=== PATIENT | female | born 1975 | race Caucasian/White ===

== ENCOUNTER 2017-12-07 12:57 | Emergency (ER) | payer BC ==
[~2017-12-07] VITALS: Ht 167.6 cm; Wt 60.0 kg
[~2017-12-07 12:57] MED LIST: ALPR.25 PO
[2017-12-07 13:09] VITALS: BP 152/89; PULSE 106; RESP 16; TEMP 98.6; O2SAT 100
[2017-12-07 14:00] VITALS: BP 134/84; PULSE 90; RESP 16; O2SAT 100
--- NOTE | 2017-12-07 14:50 | PD ---
HPI Chief Complaint: Dizziness Time Seen by Provider: 14:47 Travel History International Travel<30 days: Yes Contact w/Intl Traveler<30days: Yes Name of Country Traveled to: [facility] Traveled to known affect area: No History of Present Illness HPI Patient comes in complaining of dizziness for about a week and over the last 2 days the patient has developed this constant,nonradiating left sided sharp chest pain with deep breath . This chest pain is sharp nonradiating 3 out of 10. No alleviating or aggravating factors. Patient specifically denies having any associated factors such as fever, cough, rash, nausea, vomiting, diarrhea, sore throat, runny nose, back pain, abdominal pain, vaginal bleeding, vaginal discharge. No nondrug allergies Past medical history significant for , occasional alcohol caffeine use PFSH Past Medical History Autoimmune Disease: No Blood Disorders: No Anxiety: No Cancer: No Cardiovascular Problems: No Diabetes: No Diminished Hearing: No Endocrine: No Genitourinary: No Immune Disorder: No Musculoskeletal: No Neurologic: No Psychiatric: No Reproductive: No Respiratory: No Immunizations Current: No Thyroid Disease: No ?: Not LMP: 10/23/18 : 4 Para: 1 Miscarriage: 3 Past Surgical History Section: Yes Gynecologic Surgery: Yes (c section) Joint Replacement: No Other Surgery: Yes (REMOVE CYST ON RIGHT LEG) Social History Alcohol Use: Yes (OCCASIONAL) Tobacco Use: No Substance Use: No Allergies-Medications (Allergen,Severity, Reaction): Coded Allergies: No Known Allergies (Verified Adverse Reaction, Unknown, 12/07/17) Reported Meds & Prescriptions Reported Meds & Active Scripts Active Naproxen EC (Naproxen) 375 Mg Tabdr 375 Mg PO BID Robaxin (Methocarbamol) 500 Mg Tab 1,000 Mg PO TID Reported Xanax (Alprazolam) 0.25 Mg Tab 0.25 Mg PO Q6H PRN Review of Systems General / Constitutional: No: Fever Eyes: No: Visual changes HENT: Positive: Lightheadedness Cardiovascular: Positive: Chest Pain or Discomfort Respiratory: No: Shortness of Breath Gastrointestinal: No: Abdominal Pain Genitourinary: No: Dysuria Musculoskeletal: No: Pain Skin: No Rash Neurologic: No: Weakness Psychiatric: No: Depression Endocrine: No: Polydipsia Hematologic/Lymphatic: No: Easy Bruising Physical Exam Narrative GENERAL: SKIN: Warm and dry. HEAD: Atraumatic. Normocephalic. EYES: Pupils equal and round. No scleral icterus. No injection or drainage. ENT: No nasal bleeding or discharge. Mucous membranes pink and moist. NECK: Trachea midline. No JVD. CARDIOVASCULAR: Regular rate and rhythm. RESPIRATORY: No accessory muscle use. Clear to auscultation. Breath sounds equal bilaterally. GASTROINTESTINAL: Abdomen soft, non-tender, nondistended. MUSCULOSKELETAL: Extremities without clubbing, cyanosis, or edema. No obvious deformities. NEUROLOGICAL: Awake and alert. No obvious cranial nerve deficits. Motor grossly within normal limits. Five out of 5 muscle strength in the arms and legs. Normal speech. PSYCHIATRIC: Appropriate mood and affect; insight and judgment normal. Data Data Last Documented VS Vital Signs Date Time Temp Pulse Resp B/P (MAP) Pulse Ox O2 Delivery O2 Flow Rate FiO2 12/07/17 17:37 77 16 119/72 (88) 100 12/07/17 17:00 Room Air 12/07/17 13:09 98.6 Orders Orders Electrocardiogram (12/07/17 14:50) B-Type Natriuretic Peptide (12/07/17 14:50) Ckmb (Isoenzyme) Profile (12/07/17 14:50) Complete Blood Count With Diff (12/07/17 14:50) Comprehensive Metabolic Panel (12/07/17 14:50) Prothrombin Time / Inr (Pt) (12/07/17 14:50) Act Partial Throm Time (Ptt) (12/07/17 14:50) Troponin I (12/07/17 14:50) Lipase (12/07/17 14:50) Ecg Monitoring (12/07/17 14:50) Iv Access Insert/Monitor (12/07/17 14:50) Oximetry (12/07/17 14:50) Ct Pulmonary Angiogram (12/07/17 14:50) Urinalysis - C+S If Indicated (12/07/17 14:52) Ed Urine Pregnancytest Poc (12/07/17 14:52) Drug Screen, Random Urine (12/07/17 14:52) Salicylates (Aspirin) (12/07/17 14:52) Tylenol (Acetaminophen) (12/07/17 14:50) Alcohol (Ethanol) (12/07/17 14:50) Iohexol 350 Inj (Omnipaque 350 Inj) (12/07/17 16:17) Ed Discharge Order (12/07/17 16:39) Labs Laboratory Tests Test 12/07/17 15:10 12/07/17 15:25 White Blood Count 5.9 TH/MM3 Red Blood Count 4.51 MIL/MM3 Hemoglobin 13.9 GM/DL Hematocrit 41.4 % Mean Corpuscular Volume 91.7 FL Mean Corpuscular Hemoglobin 30.8 PG Mean Corpuscular Hemoglobin Concent 33.5 % Red Cell Distribution Width 12.3 % Platelet Count 192 TH/MM3 Mean Platelet Volume 9.3 FL Neutrophils (%) (Auto) 83.8 % Lymphocytes (%) (Auto) 11.8 % Monocytes (%) (Auto) 3.7 % Eosinophils (%) (Auto) 0.5 % Basophils (%) (Auto) 0.2 % Neutrophils # (Auto) 5.0 TH/MM3 Lymphocytes # (Auto) 0.7 TH/MM3 Monocytes # (Auto) 0.2 TH/MM3 Eosinophils # (Auto) 0.0 TH/MM3 Basophils # (Auto) 0.0 TH/MM3 CBC Comment DIFF FINAL Differential Comment Prothrombin Time 10.7 SEC Prothromb Time International Ratio 1.1 RATIO Activated Partial Thromboplast Time 24.7 SEC Blood Urea Nitrogen 11 MG/DL Creatinine 0.70 MG/DL Random Glucose 90 MG/DL Total Protein 7.8 GM/DL Albumin 4.2 GM/DL Calcium Level 8.5 MG/DL Alkaline Phosphatase 56 U/L Aspartate Amino Transf (AST/SGOT) 10 U/L Alanine Aminotransferase (ALT/SGPT) 20 U/L Total Bilirubin 0.6 MG/DL Sodium Level 138 MEQ/L Potassium Level 3.4 MEQ/L Chloride Level 106 MEQ/L Carbon Dioxide Level 23.2 MEQ/L Anion Gap 9 MEQ/L Estimat Glomerular Filtration Rate 91 ML/MIN Total Creatine Kinase 38 U/L Troponin I LESS THAN 0.02 NG/ML B-Type Natriuretic Peptide 16 PG/ML Lipase 184 U/L Salicylates Level LESS THAN 1.7 MG/DL Acetaminophen Level LESS THAN 2.0 MCG/ML Ethyl Alcohol Level LESS THAN 3 MG/DL Urine Color YELLOW Urine Turbidity CLEAR Urine pH 6.0 Urine Specific [place]aine 1.010 Urine Protein NEG mg/dL Urine Glucose (UA) NEG mg/dL Urine Ketones 15 mg/dL Urine Occult Blood SMALL Urine Nitrite NEG Urine Bilirubin NEG Urine Urobilinogen 0.2 MG/DL Urine Leukocyte Esterase NEG Urine WBC 0-2 /hpf Microscopic Urinalysis Comment CULT NOT INDICATED Urine Opiates Screen NEG Urine Barbiturates Screen NEG Urine Amphetamines Screen NEG Urine Benzodiazepines Screen NEG Urine Cocaine Screen NEG Urine Cannabinoids Screen NEG MDM Medical Decision Making Medical Screen Exam Complete: Yes Emergency Medical Condition: Yes Medical Record Reviewed: Yes Interpretation(s) EKG shows normal sinus rhythm, sinus tachycardia of 100 bpm, left atrial enlargement noted, no evidence of any ST elevation AK pattern noted. Differential Diagnosis Pneumonia versus pleurisy versus pulmonary embolism versus pericardial effusion versus STEMI Narrative Course CBC shows no evidence of any leukocytosis no anemia, normal platelet count without left shift Coagulation profile is within normal limits UA is not consistent with a UTI Tox screen is all negative Electrolytes are all within normal limits, normal kidney liver and pancreatic functions First set of cardiac enzymes are negative and beta natruretic peptide is normal. CT chest read by radiologist as no evidence of pulmonary embolism, no acute pulmonary infiltrates or pericardial effusion. Diagnosis Primary Impression: Chest pain, atypical Patient Instructions: General Instructions Scripts Naproxen DR (Naproxen EC) 375 Mg Tabdr 375 MG PO BID, #20 TAB 0 Refills Prov: Aric Quiroz MD 12/07/17 Methocarbamol (Robaxin) 500 Mg Tab 1000 MG PO TID for Muscle Spasm, #30 TAB 0 Refills Prov: Aric Quiroz MD 12/07/17 Disposition: 01 DISCHARGE HOME Condition: Stable Aric Quiroz MD Dec 07, 2017 14:50
[2017-12-07 15:00] VITALS: RESP 16; O2SAT 100
[2017-12-07 15:15] VITALS: BP 118/76; PULSE 82; RESP 16; O2SAT 100
[2017-12-07 15:22] LABS: BASOPHIL % 0.2 % (0.0-2.0); EOSINOPHIL % 0.5 % (0.0-4.0); HEMATOCRIT 41.4 % (35.0-46.0); HEMOGLOBIN 13.9 GM/DL (11.6-15.3); LYMPH % 11.8 % (9.0-44.0); LYMPHOCYTE # 0.7 TH/MM3 (1.0-4.8); MEAN CELL VOLUME 91.7 FL (80.0-100.0); MEAN CORPUSCULAR HEMOGLOBIN 30.8 PG (27.0-34.0); MEAN CORPUSCULAR HGB CONC 33.5 % (32.0-36.0); MEAN PLATELET VOLUME 9.3 FL (7.0-11.0); MONO % 3.7 % (0.0-8.0); MONOCYTE # 0.2 TH/MM3 (0-0.9); NEUT % 83.8 % (16.0-70.0); PLATELET COUNT 192 TH/MM3 (150-450); RED BLOOD COUNT 4.51 MIL/MM3 (4.00-5.30); RED CELL DISTRIBUTION WIDTH 12.3 % (11.6-17.2); WHITE BLOOD COUNT 5.9 TH/MM3 (4.0-11.0)
[2017-12-07 15:32] LABS: CHLORIDE 106 MEQ/L (98-107); SODIUM (NA) 138 MEQ/L (136-145)
[2017-12-07 15:36] LABS: CALCIUM 8.5 MG/DL (8.5-10.1); INTERNATIONAL NORMALIZED RATIO 1.1 RATIO; PROTHROMBIN TIME - PATIENT 10.7 SEC (9.8-11.6)
[2017-12-07 15:37] LABS: ALBUMIN 4.2 GM/DL (3.4-5.0); BICARBONATE 23.2 MEQ/L (21.0-32.0); BLOOD UREA NITROGEN 11 MG/DL (7-18); GLUCOSE,RANDOM 90 MG/DL (74-106)
[2017-12-07 15:37] LABS: BILIRUBIN, URINE NEG (NEG); BLOOD, URINE SMALL (NEG); GLUCOSE,URINE NEG (NEG); KETONE, URINE 15 mg/dL (NEG); NITRITE,URINE NEG (NEG); URINE COLOR YELLOW (YELLW/STRAW); URINE LEUKOCYTE ESTERASE NEG (NEG)
[2017-12-07 15:39] LABS: ALT (GPT) 20 U/L (10-53); AST (GOT) 10 U/L (15-37)
[2017-12-07 15:40] LABS: GLOMERULAR FILTRATION RATE 91 ML/MIN (>89)
[2017-12-07 15:41] LABS: TOTAL BILIRUBIN ADULT 0.6 MG/DL (0.2-1.0); TOTAL PROTEIN 7.8 GM/DL (6.4-8.2)
[2017-12-07 15:42] LABS: ALKALINE PHOSPHATASE 56 U/L (45-117)
[2017-12-07 15:45] LABS: TROPONIN I LESS THAN 0.02 NG/ML (0.02-0.05)
[2017-12-07] MEDS ORDERED: ALPR.25 PO (15:48)
[2017-12-07 15:50] LABS: WBC, URINE 0-2 /hpf (0-5)
[2017-12-07 15:53] LABS: ACETAMINOPHEN LESS THAN 2.0 MCG/ML (10.0-30.0)
[2017-12-07] MEDS ORDERED: IOHEXOL 350 MG/ML 10 ML VIAL (for RAD DIAG) IVCONTRAST ONE (16:17)
--- NOTE | 2017-12-07 16:25 | RADRPT ---
EXAM DATE: 12/07/2017 4:18 PM EDT AGE/SEX: 42 years / Female INDICATIONS: Breathing difficulty and dizziness. CLINICAL DATA: This is the patient's initial encounter. Patient reports that signs and symptoms have been present for 1 day and indicates a pain score of 0/10. MEDICAL/SURGICAL HISTORY: None. section. RADIATION DOSE: 6.08 CTDI (mGy) COMPARISON: No prior exams available for comparison. TECHNIQUE: Volumetric scanning was performed using a multi-row detector CT scanner during bolus infu matteo of 65 ml Omnipaque 350 (iohexol) nonionic water-soluble contrast as a single exam dose. The michael a was post processed with a variety of visualization algorithms including full volume maximum intensi ty projection and sliding thin slab reformation. Using automated exposure control and adjustment of t he mA and/or kV according to patient size, radiation dose was kept as low as reasonably achievable to obtain optimal diagnostic quality images. DICOM format image data is available electronically for r eview and comparison. FINDINGS: Pulmonary Arteries: No filling defects are seen in the pulmonary arteries out to the subsegmental ve ssels. The left and right pulmonary arteries are normal in diameter. Lung: No infiltrates seen. Effusion: None. Mediastinum: No evidence of mediastinal or hilar adenopathy. Other: The axilla is unremarkable. CONCLUSION: 1. No evidence of pulmonary embolism. 2. No focal or acute pulmonary infiltrates. Electronically signed by: Jadiel Escobar MD 12/07/2017 4:24 PM EDT
[2017-12-07] MEDS ORDERED: NAPR375T4 PO (17:02)
[2017-12-07] MEDS ORDERED: ROBA500T PO (17:02)
[2017-12-07 17:37] VITALS: BP 119/72
--- NOTE | 2017-12-08 07:36 | EKG ---
Date Performed: 12/07/2017 Time Performed: 15:01:59 PTAGE: 42 years EKG: SINUS TACHYCARDIA POSSIBLE LEFT ATRIAL ENLARGEMENT ABNORMAL RHYTHM ECG PREVIOUS TRACING : 08/26/2014 17.49 DOCTOR: Humberto An Interpretating Date/Time 12/08/2017 07:32:48
== END 2017-12-07 17:41 | disposition home or self-care (01) ==
LOC: PHED 12:57
DX: R07.89 Other chest pain (principal); R42 Dizziness and giddiness; R94.31 Abnormal electrocardiogram [ECG] [EKG]; Z79.899 Other long term (current) drug therapy
CPT/HCPCS: 71275; 80053; 80307; 81001; 82550; 83690; 83880; 84484; 84703; 85025; 85610; 85730; 93005; 99285; Q9967